=== PATIENT | female | born 1980 | race Caucasian/White ===

== ENCOUNTER 2022-06-20 15:14 | Emergency (ER) | payer MEDICAID, SELFPAY ==
[2022-06-20 15:19] VITALS: BP 184/109; PULSE 72; RESP 14; TEMP 37.1; O2SAT 99
[2022-06-20 15:24] VITALS: BP 172/90
--- NOTE | 2022-06-20 16:15 | DI.RAD_ITS ---
Exam(s) XR FOOT RT COMPLETE EXAM: XR FOOT RT COMPLETE CLINICAL HISTORY: pain dorsal, include standing wb AP view TECHNIQUE: COMPARISON: No exams were available for comparison FINDINGS: Three views were obtained. There is a small apparent low calcific or osseous density projected dorsa lly at the base of the metatarsals, please correlate clinically regarding the possibility of an acute fracture at this site. Otherwise the bones appear intact and no other abnormality of alignment is s een. IMPRESSION: RADIATION DOSE DELIVERED: Total DLP
--- NOTE | 2022-06-20 16:34 | ED.GENADUL_ITS ---
Discharge Plan Disposition Patient Disposition: HOME Condition: Stable Discharge Details Clinical Impression: Closed fracture of first metatarsal bone Primary Care Provider: Unknown,Unknown ED Provider: Dov Liu Home Meds and New Rx's Prescriptions: Continued sumatriptan succinate [Imitrex] 25 MG tablet 25 mg PO DIRECTED Qty: 8 0RF Rx Instructions: 1 - 2 tabs at sign of migraine, may repeat in 2 hours if necessary, do not take with Tramadol citalopram 20 mg tablet 1 tab PO DAILY Label Comments: TAKE 1 TABLET BY MOUTH EVERY DAY gabapentin 100 MG capsule 100 mg PO TID ibuprofen [Ibuprofen IB] 200 MG tablet 4 mg PO DAILY Discharge Instructions Instructions: Foot Fracture in Adults (ED) Additional Instructions: Please use orthopedic shoe for support and use crutches. Weight-bear as tolerated. Please follow-up with orthopedics. Referrals: [facility] [Provider Group] Medical Decision Making 163 --41-year-old female here with dorsal right foot pain over the past 1 week. Patient does not recall any specific injury. Seen at outside hospital yesterday and had plain films of the right foot performed that were initially interpreted as normal and then she received call today alerting her to possible small fracture or bone fragment that was not initially apparent. Given pain distribution and tenderness I am concerned about the potential for Lisfranc injury. I will obtain repeat imaging with weightbearing AP. I will provide ibuprofen 600 mg for pain and initiate crutches. 1744 --x-ray of the foot with weightbearing view was interpreted by radiology: Possible minor chip fracture of the dorsal and medial base of the first metatarsal. Best appreciated on lateral view series 3 image 1. Recommend clinical correlation. Plan to treat with postop shoe and crutches. Weightbearing as tolerated. Follow-up with orthopedics. Results were discussed with patient usual and customary discharge instructions were reviewed. HPI General Mode of arrival: ambulatory . Date/Time Provider Initiated Documentation: 06/20/22 16:03 . Limitations to Documentation: no limitations . Information obtained by: patient . HPI Narrative: 41-year-old female presents with chief complaint of right foot pain. Patient notes she has had right foot pain over the past 1 week. Pain is localized to her dorsal foot. Pain is moderate to severe and worse on palpation of the dorsal foot and with ambulation. She notes she is been taking ibuprofen 600 mg which does help the pain but it has persisted. She was seen yesterday at [facility] emergency department had x-rays of her foot. X-rays were initially read as negative and then she received call that there may be a small fracture or bone fragment. She hoped to follow-up with her PCP when she called today there was a significant delay for next available appointment and she decided to seek care here in the emergency department specifically requesting crutches. Of note, x-rays performed yesterday did not include standing AP view. Related Data Home Medications Medication Instructions Recorded Confirmed sumatriptan succinate 25 mg tablet 25 mg PO DIRECTED #8 tabs 04/03/16 06/20/22 (Imitrex) gabapentin 100 mg capsule 100 mg PO TID 01/20/17 06/20/22 ibuprofen 200 mg tablet (Ibuprofen 4 mg PO DAILY 01/22/17 06/20/22 IB) citalopram 20 mg tablet 1 tab PO DAILY 06/20/22 06/20/22 Previous Rx's Medication Instructions Recorded sumatriptan succinate 25 mg tablet 25 mg PO DIRECTED #8 tabs 04/03/16 (Imitrex) Allergies Allergy/AdvReac Type Severity Reaction Status Date / Time No Known Allergies Allergy Unverified 06/20/22 15:22 General Stated Complaint: Orthopedic LEIGH ANN: 4 Review of Systems Constitutional Constitutional: Denies fever(s) Musculoskeletal Musculoskeletal: Reports as per HPI Neurologic Neurologic: Denies sensory deficit PFSH All Active Problems (Updated 06/20/22 @ 17:51 by Dov Liu MD) Closed fracture of first metatarsal bone (Acute) Social History Smoking/Tobacco Use Status: Current every day Tobacco Type: cigarettes Smoking risk assessment performed?: Yes Alcohol Intake: never Drug use: Current Sobriety Substance use type: does not use Do you feel safe at home: Yes Do you feel safe in your relationship?: Yes Exam Const General: cooperative and no acute distress HENMT Mouth: moist mucous membranes Cardio Rate: regular rate and not tachycardic Rhythm: regular rhythm Skin General skin exam: no rashes or lesions noted Neuro General: patient alert, patient awake and tone normal Extrem General: no edema Right lower extremity: foot Details: normal capillary refill, tenderness Location: of the dorsal foot (Proximal to mid over second and third metatarsals), toes with normal ROM, vascular exam Details: dorsalis pedis pulse present and motor-sensory exam Details: light-touch normal; no unusual warmth and no ecchymosis; no edema Course Vital Signs Vital signs: Vital Signs Temperature 37.1 C 06/20/22 15:19 Pulse 72 06/20/22 15:19 Respiratory Rate 14 06/20/22 15:19 Blood Pressure 184/109 H 06/20/22 15:19 Pulse Oximetry 99 06/20/22 15:19 Temperature 37.1 C 06/20/22 15:19 Temperature Source Temporal Artery Scan 06/20/22 15:19 Pulse 72 06/20/22 15:19 Respiratory Rate 14 06/20/22 15:19 Respiratory Effort Non-Labored 06/20/22 15:25 Blood Pressure 172/90 H 06/20/22 15:24 Blood Pressure Position Sitting 06/20/22 15:19 Pulse Oximetry 99 06/20/22 15:19 Oxygen Delivery Method Room Air 06/20/22 15:19 Oxygen Flow Rate 0 06/20/22 15:19 Pain Level 7 06/20/22 15:19
[2022-06-20] MEDS: Ibuprofen 600 MG TAB PO (17:02)
--- NOTE | 2022-06-20 17:31 | DI.VRAD_ITS ---
PROCEDURE INFORMATION: Exam: XR Right Foot Exam date and time: 06/20/2022 4:46 PM Age: 41 years old Clinical indication: Pain; Foot; Right TECHNIQUE: Imaging protocol: Radiologic exam of the Right foot. Views: 3 or more views. COMPARISON: No relevant prior studies available. FINDINGS: Bones/joints: Lateral view shows a small cortical type fragment dorsally at the level of the base of the metatarsals. This fragment is approximately 7 mm in length and 3 mm in width. Possibility of this being a cortical avulsion chip fracture cannot be excluded. This is possibly seen on the AP view along the lateral aspect of the 1st metatarsal base. No additional bone irregularities or suggested fractures. No dislocation or malalignment. No arthritic features. Soft tissues: Intact soft tissues. No significant swelling. No gas or foreign body. IMPRESSION: 1. Possible minor chip fracture of the dorsal and medial base of the 1st metatarsal. Best appreciated on lateral view series 3, image 1. Recommend clinical correlation. 2. Intact soft tissues. Dictated and Authenticated by: Doug Pendleton MD. Ordering:BOGDAN Monae MD
== END 2022-06-20 18:07 | disposition home or self-care (01) ==
PROVIDERS: Emergency Provider Student in an Organized Health Care Education/Training Program
DX: S92.311A Displaced fracture of first metatarsal bone, right foot, initial encounter for closed fracture (principal); F17.210 Nicotine dependence, cigarettes, uncomplicated; X58.XXXA Exposure to other specified factors, initial encounter
CPT/HCPCS: 99283; 73630; 99284

== ENCOUNTER 2024-08-12 08:39 | Emergency (ER) | payer MEDICAID, SELFPAY ==
[2024-08-12 08:43] VITALS: BP 135/77; PULSE 72; RESP 15; TEMP 36.2; O2SAT 98
--- NOTE | 2024-08-12 08:45 | DI.RAD_ITS ---
Exam(s) XR FOOT LT COMPLETE EXAM: XR FOOT LT COMPLETE CLINICAL HISTORY: Left forefoot and great toe pain. TECHNIQUE: 2D digital imaging was performed. Three views. COMPARISON: CR,XR XR FOOT RT COMPLETE from 06/20/2022 FINDINGS: BONES: No acute fracture is present. No bony destructive lesion is seen. JOINTS: No dislocation present. SOFT TISSUE: Normal. IMPRESSION: Unremarkable radiographs of the left foot. DATA REPOSITORY: RADIATION DOSE DELIVERED:
--- NOTE | 2024-08-12 08:46 | ED.GENADUL_ITS ---
Discharge Plan Disposition Patient Disposition: Home Discharge Details Clinical Impression: Acute pain of left foot Primary Care Provider: Unknown,Unknown ED Provider: Mike Blanchard Home Meds and New Rx's Prescriptions: Continued citalopram 20 mg tablet 1 tab PO DAILY Patient Comments: TAKE 1 TABLET BY MOUTH EVERY DAY gabapentin 100 MG capsule 100 mg PO TID ibuprofen [Ibuprofen IB] 200 MG tablet 4 mg PO DAILY Discharge Instructions Additional Instructions: You are seen in the emergency department for your foot pain. Your x-ray showed no sign of any fractures. You are receiving a walking boot. As we discussed if you have worsening pain over the next several days please follow-up with your primary care provider as you may benefit from a repeat x-ray or more sensitive test such as a CT scan or an MRI to assess for any fractures. Please wear this walking boot and bear weight as tolerated on your left lower extremity. For your pain please take medications as follows: 1. Take acetaminophen (Tylenol), 1,000 mg (two 500 mg tabs) every 6 hours [2. Take ibuprofen (Advil), 400 mg every 6 hours.] Discharge Data Discharge Date/Time-TO BE ENTERED AT DEPARTURE: 08/12/24 09:46 HPI General Date/Time Provider Initiated Documentation: 08/12/24 08:46 . HPI Narrative: MDM This is an overall well-appearing afebrile not tachycardic 43-year-old female who has left forefoot and great toe pain concerning for fracture versus sprain for which patient will undergo x-ray. No pain on proportion to suggest necrotizing soft tissue infection. No significant swelling to suggest septic joint. No history of gouty arthritis to suggest gout. No recent tick bites to suggest Lyme arthritis. No erythema to suggest cellulitis. No fluctuance to suggest abscess. No ulcers and no history of diabetes and the suspicion is low for osteomyelitis. No midfoot instability to suggest Lisfranc injury. No left lateral foot tenderness to suggest Baez fracture. No history of axial loading to suggest increased risk for talar fracture. Left foot warm and well-perfused and patient has no history of vascular disease so I am not suspicious for critical limb ischemia so I did not feel the patient requires a CT angiogram. Will obtain plain films and treat patient with a walking boot making her weightbearing as tolerated. 9:30 AM Radiographs negative for any acute osseous abnormalities. I met with the patient and explained that she most likely had a foot sprain. Will treat her weightbearing as tolerated in a walking boot. I advised that there is certainly a small chance that she had a small fracture. I advised that if her symptoms do not improve in the next several days that she should follow-up with her primary care provider as she may benefit from a repeat x-ray or possibly a test with more sensitivity such as a CT scan or an MRI. I advise ED return for any significant color changes in her foot or any worsening pain. She understood her return indications and was discharged with empiric trial of expectant outpatient management. HPI This is a previously healthy 43-year-old female arriving emergency department via private vehicle in the setting of left great toe pain. Patient notes that she stopped her left great toe 5 days ago. Starting 2 days ago she had worsening pain and difficulty moving her left great toe. Patient has not yet had anything for analgesia this morning. She has no history of peripheral vascular disease. She denies history of diabetes anticoagulation. No history of surgeries to her left foot in the past. No history of gout. No recent fevers chills nausea or vomiting. Exam General: Well-appearing in no acute distress speaking in complete sentences. Head: Normocephalic, atraumatic. Eye: Extraocular eye movements intact. No conjunctival injection. No scleral icterus. Ear, nose, mouth, throat: Grossly normal inspection. Normal voice, handling secretions normally. Neck: Trachea midline. Cardiovascular: Well-perfused distal extremities. Respiratory: Nonlabored respiration. Gastrointestinal: Nondistended abdomen. Musculoskeletal: No edema. Moving all 4 extremities spontaneously. Left lower extremity no signs of trauma. No lacerations. No ecchymosis. Left foot warm well-perfused 2+ left PT and DP pulses. Cap refill less than 2 seconds in left toes. Patient does have tenderness throughout her great toe. She has limitations in flexion extension in her great toe secondary to pain. She has no midfoot instability. No left lateral foot tenderness. No calcaneal no talar tenderness. No significant erythema nor swelling of left lower extremity. Skin: Normal for age and race, grossly normal temperature and turgor. No acute rash. Neurologic: Alert and appropriate, no apparent acute deficits. Psychiatric: Mood and manner are appropriate. Grooming and personal hygiene are appropriate. Related Data Home Medications ?Medication ?Instructions ?Recorded ?Confirmed gabapentin 100 mg capsule 100 mg PO TID 01/20/17 08/12/24 ibuprofen 200 mg tablet (Ibuprofen 4 mg PO DAILY 01/22/17 08/12/24 IB) citalopram 20 mg tablet 1 tab PO DAILY 06/20/22 08/12/24 Allergies Allergy/AdvReac Type Severity Reaction Status Date / Time No Known Allergies Allergy Unverified 08/12/24 08:48 General LEIGH ANN: 4 Medical Decision Making Quality:SDOH Health Related Social Needs: No Data to Display PFSH All Active Problems (Updated 08/12/24 @ 09:32 by Mike Blanchard MD) Acute pain of left foot (Acute) Social History Smoking/Tobacco Use Status: Current every day Tobacco Type: cigarettes Smoking risk assessment performed?: Yes Alcohol Intake: never Drug use: Socially Substance use type: marijuana Do you feel safe at home: Yes Do you feel safe in your relationship?: Yes
[2024-08-12] MEDS: Acetaminophen 500 MG TAB 1000 MG PO (09:15)
[2024-08-12] MEDS: Ibuprofen 600 MG TAB PO (09:16)
[2024-08-12 09:44] VITALS: BP 132/90; PULSE 80; RESP 18; O2SAT 97
== END 2024-08-12 09:46 | disposition home or self-care (01) ==
PROVIDERS: Emergency Provider Emergency Medicine
DX: M79.675 Pain in left toe(s) (principal)
CPT/HCPCS: 99283; 73630